=== PATIENT | female | born 1965 | race Caucasian/White ===

== ENCOUNTER → 2023-05-27 09:47 | Outpatient (CLI) | payer OTHER, MEDICAID, SELFPAY ==
--- NOTE | 2023-05-27 | DI.US.S_ITS ---
PROCEDURE: US THYROID INDICATIONS: Hypothyroidism TECHNIQUE: Real-time scanning was performed of the thyroid gland, with image documentation. COMPARISON: None. FINDINGS: Right: Thyroid lobe measures 1.3 x 0.8 x 0.3 cm, and is heterogeneous in echotexture. Left: Thyroid lobe measures 1.4 x 1.1 x 0.2 cm, and is heterogeneous in echotexture. Isthmus: Not well seen No thyroid nodules. IMPRESSION: Hypoplastic, heterogeneous thyroid gland with no discrete thyroid nodule. Dictated by: Evelio Jessica M.D. on 05/27/2023 at 12:52 Approved by: Evelio Jessica M.D. on 05/27/2023 at 12:54
== END ==
PROVIDERS: PCP Nurse Practitioner Family; Referring Provider Nurse Practitioner Family; Visit Provider Nurse Practitioner Family
DX: E03.9 Hypothyroidism, unspecified (principal); E03.1 Congenital hypothyroidism without goiter
CPT/HCPCS: 76536

== ENCOUNTER → 2023-07-04 11:09 | Outpatient (CLI) | payer OTHER, MEDICAID, SELFPAY ==
[2023-07-08 15:13] LABS: Anti Thyroglobulin Antibody <1.0 IU/mL (0.0-0.9); Thyroid Peroxidase Antibodies 17 IU/mL (0-34)
== END ==
LOC: LAB 11:14
PROVIDERS: PCP Nurse Practitioner Family; Referring Provider Nurse Practitioner Family; Visit Provider Nurse Practitioner Family
DX: E03.9 Hypothyroidism, unspecified (principal)
CPT/HCPCS: 36415; 86376; 86800

== ENCOUNTER 2024-03-10 10:30 | Day surgery (SDC) | payer OTHER, MEDICAID, SELFPAY ==
[2024-03-10 10:42] VITALS: BP 160/91; PULSE 62; RESP 18; TEMP 36.1; O2SAT 96
--- NOTE | 2024-03-10 11:25 | P.HP_ITS ---
History of Present Illness History of Present Illness Date Patient Seen: 03/10/24 Time Patient Seen: 11:25 Chief complaint: Screening Colonoscopy Narrative: Loretta is a 58-year-old woman who comes in for a colonoscopy. She has never had 1 before. No family history of colon cancer. [facility] Social History Smoking Status: Never smoker Meds Home Medications and Allergies Home Medications Medication Instructions Recorded Confirmed Type levothyroxine 100 mcg tablet 100 mcg PO DAILY 03/10/24 03/10/24 History sertraline 100 mg tablet 100 mg PO DAILY 03/10/24 03/10/24 History Allergies Allergy/AdvReac Type Severity Reaction Status Date / Time erythromycin base AdvReac Verified 03/10/24 10:40 Exam Vital Signs (past 8 hours): - 03/10/24 10:42 Temperature 97 F L Pulse Rate 62 Respiratory Rate 18 Blood Pressure 160/91 H Pulse Oximetry 96 Oxygen Delivery Method Room Air Oxygen Delivery Method Room Air Const General: healthy appearing Assessment & Plan Assessment and plan (1) Colon cancer screening: Status: Acute Plan Colonoscopy Time-Based Coding :: [TOTAL MINUTES] spent with patient and on the chart (including review of chart, obtaining history, exam, reviewing outside data, placing orders, documenting exam and treatment plan, and counseling patient) on [DATE].
[2024-03-10 11:48] VITALS: BP 122/79; PULSE 65; RESP 14; TEMP 36.2; O2SAT 95
--- NOTE | 2024-03-10 11:49 | PM.OP.COLON ---
Operative Date/Time/Diagnoses Date of procedure: 03/10/24 Time of procedure: 11:49 Pre-op diagnosis: Colon cancer screening Post-op diagnosis: same Procedure & Clinicians Study performed: Colonoscopy Same procedure as scheduled: Yes Surgeon: Joni Worley Procedure Notes Procedure in detail: Surgeon: Joni Worley MD Anesthesia: Shireen Oconnor CRNA Procedure: The patient was brought to the endoscopy suite, placed in left lateral decubitus position. The patient was connected to monitoring devices. A time-out was performed. Sedation was administered. Once the patient was adequately sedated, a digital rectal exam was performed and was normal. The scope was then inserted and advanced to the cecum where the appendiceal orifice was identified and photographed. The scope was then slowly withdrawn over greater than 6 minutes. The mucosa was thoroughly inspected. No abnormalities were found. The scope was retroflexed in the rectum. The scope was straightened and removed. The patient was awakened and brought to recovery. Scope withdrawal time: 6 minutes Sedation time: 12 minutes EBL: 0 Findings: Normal colon Post-procedure Recommendations: Colonoscopy in 10 years Disposition: PACU
[2024-03-10 11:52] VITALS: BP 122/85; PULSE 67; RESP 16; O2SAT 96
[2024-03-10 11:57] VITALS: BP 107/79; PULSE 55; RESP 16; TEMP 36.3; O2SAT 97
[2024-03-10 12:00] VITALS: BP 120/76; PULSE 58; RESP 16; O2SAT 97
== END 2024-03-10 12:10 | disposition home or self-care (01) ==
PROVIDERS: PCP Nurse Practitioner Family; Referring Provider Surgery; Visit Provider Surgery
PROC: 0DJD8ZZ Inspection of Lower Intestinal Tract, Via Natural or Artificial Opening Endoscopic (ICD-10-PCS; CPT 45378; principal; 2024-03-10 11:30)
DX: Z12.11 Encounter for screening for malignant neoplasm of colon (principal)
CPT/HCPCS: 45378; J2704